=== PATIENT | female | born 1995 | race Caucasian/White ===

== ENCOUNTER 2025-05-01 06:20 | Inpatient (IN) | payer BC, SELFPAY ==
[2025-05-01] VITALS (214 sets, daily range): BP systolic 90–142; BP diastolic 28–93; PULSE 75–149; RESP 16; TEMP 36.7–37.6; O2SAT 94–100; BMI 32.9
--- OUTSIDE RECORDS SUMMARY | 2025-05-01 06:26 | XMS_ITS | Clinical Summary ---
Author Organization [facility] Address [address] [place] [id number] Care Team Providers Care Bag Shaker Name Role Phone Unavailable Primary Care Provider Unavailabl e Social History Tobacco Use Types Packs/Day Years Used Date Smoking Tobacco: Never Assessed Comments Unknown Sex and Gender Information Value Date Recorded Sex Assigned at Not on file Legal Sex Female 2:31 PM DRUG COORDINATOR Gender Identity Not on file Sexual Orientation Not on file Plan of Treatment Upcoming Encounters Date Type Department Care Team (Late st Contact Info) Description 10/28/2025 9:20 AM DRUG COORDINATOR Office Visit [facility] [address] [id number] Leroy [place], [address] [place] [id number] Health Maintenance Due Date Last Done Comments Cervical Cancer Screening Pa p Smear (Age 21 to 29) Every 3 Years 1997 Cervical Cancer Screening 1997 Annual Physical 01/17/2000 Hepatitis C 2015 DTaP, Tdap and Td Vaccines ( 1 - Tdap) 01/17/2016 Hepatitis B Vaccines (1 of 3 - 19+ 3-dose series) 01/17/2016 COVID-19 Vaccine (2023-2 5 season) 2024 HPV Vaccines Aged Out No longer eligi ble based on patient's age to complete this topic Meningococcal B Vaccine Aged Out No l onger eligible based on patient's age to complete this topic Meningococcal Vaccine Aged Out No corey faviola eligible based on patient's age to complete this topic Pneumococcal Vaccine: Pediat rics (0 to 5 Years) and At-Risk Patients (6 to 49 Years) Aged Out No longer eligible b ased on patient's age to complete this topic RSV Immunizations Under 20 Months Aged Out No longer eligible based on patient's age to complete this topic
--- NOTE | 2025-05-01 06:54 | PM.IMHP ---
H&P: HPI History of Present Illness Date/Time: 05/01/25 06:54 Chief Complaint: Induction of labor at term Narrative: This is a 30-year-old 1 para 0 whose last menstrual period was 07/26/2024, EDC is 05/02/2025, confirmed by first-trimester ultrasound presents at 39 and 6 7th weeks gestation for induction of labor. She is negative for group B strep in her has been uncomplicated. Her cervix is very favorable Review of Systems Review of Systems: All systems reviewed & are unremarkable except as noted in HPI and below PMFSH Family History Family History Grandparent Cerebrovascular accident Grandparent Pacemaker Atherosclerosis Hypertension Hyperlipidemia Grandparent Cancer Grandparent Heart disease Sibling Bicuspid aortic valve Social History Social History Substance use: never Spiritual care concerns: No Meds Home Medications and Allergies Home Medications ?Medication ?Instructions ?Recorded ?Confirmed ?Type loratadine 10 mg tablet (Claritin) 10 mg PO DAILY 04/05/25 05/01/25 History vit no.95-ferrous 1 tablet PO DAILY 04/05/25 05/01/25 History fumarate 28 mg-folic acid 800 mcg tablet () Allergies Allergy/AdvReac Type Severity Reaction Status Date / Time almond Allergy hives Verified 04/05/25 13:36 clindamycin Allergy hives Verified 04/05/25 13:36 ibuprofen Allergy hives Verified 04/05/25 13:36 Sulfa (Sulfonamide Allergy hives Verified 04/05/25 13:36 Antibiotics) Vital Signs Vital Signs - 24 hr 05/01/25 06:39 05/01/25 06:45 Pulse Rate 115 H 108 H Blood Pressure 125/87 126/88 Exam Const: General: cooperative, healthy appearing, comfortable and average body habitus Orientation/consciousness: oriented to person, oriented to place and oriented to time HENMT: Head: normal to inspection Resp: Effort & Inspection: normal respiratory effort Cardio: Rate: regular rate Rhythm: regular rhythm Heart sounds: S1 normal heart sound present and S2 normal heart sound present GI: Inspection: normal to inspection (Gravid soft uterus) Auscultation: normal bowel sounds : External Female Exam: normal external appearance Speculum Exam - Vagina: normal appearance of the vagina Speculum Exam - Cervix: normal appearance of the cervix (Cervix 3/75/1. AROM clear. FHT is reassuring) Assessment and Plan Assessment and plan (1) Term : Code(s): Z34.90 - Encounter for supervision of normal , unspecified, unspecified trimester Status: Acute Plan Medical induction of labor. Spontaneous vaginal delivery expected. She is an epidural candidate
--- NOTE | 2025-05-01 06:56 | LDADM ---
This patient, Keysha Franco, was admitted to Labor/Delivery/Recovery 108 on 05/01/25 at 06:20. Plans for labor, pain management and were discussed with patient. Patient/family oriented to hospital policies and general routines including ID bracelet, bed and alarms, visiting hours, pain management, procedures, bathroom and other care routines, personal items, smoking policy, room service/diet and guest tray routines, security routines, and visiting hours. Patient/Family are encouraged to report perceived risks to care and to ask questions if they do not understand what they are told or what they should do. See OBIX for further documentation.
--- NOTE | 2025-05-01 06:58 | P.PNAN_ITS ---
Anes - Eval Pre Procedure Procedure: labor epidural Date/Time: 05/01/25 06:58 Surgeon: fracisco Preop Diagnosis: pain during labor Pre Op Diagnosis: IOL Patient Data Age: 30 Gender: F Height: Weight: Last Vital Signs Pulse 108 H 05/01/25 06:45 BP 126/88 05/01/25 06:45 Allergies Allergy/AdvReac Type Severity Reaction Status Date / Time almond Allergy hives Verified 04/05/25 13:36 clindamycin Allergy hives Verified 04/05/25 13:36 ibuprofen Allergy hives Verified 04/05/25 13:36 Sulfa (Sulfonamide Allergy hives Verified 04/05/25 13:36 Antibiotics) Home Medications ?Medication ?Instructions ?Recorded ?Confirmed ?Type loratadine 10 mg tablet (Claritin) 10 mg PO DAILY 04/05/25 05/01/25 History vit no.95-ferrous 1 tablet PO DAILY 04/05/25 05/01/25 History fumarate 28 mg-folic acid 800 mcg tablet () Patient hx anesthesia problems: none Family hx anesthesia problems: none Results Review: All pre-operative results and documents have been reviewed as part of the pre- operative evaluation. REPLACED BY [facility] Past Medical History Medical History (Updated 05/01/25 @ 07:00 by Christine Garcia CRNA) Migraines, neuralgic Family History Family History Grandparent Cerebrovascular accident Grandparent Pacemaker Atherosclerosis Hypertension Hyperlipidemia Grandparent Cancer Grandparent Heart disease Sibling Bicuspid aortic valve Social History Social History Substance use: never Spiritual care concerns: No Exam Day of Procedure 05/01/25 06:58
[2025-05-01 07:02] LABS: Hematocrit 40.8 % (37.0-47.0); Hemoglobin 13.6 g/dL (12.0-15.0); Immature Granulocyte Percent A 0.3 % (0-0.5); Lymphocytes Absolute Auto 1.82 K/mm3 (0.9-3.2); Mean Corpuscular HGB Conc 33.3 g/dl (32-36); Mean Corpuscular Hemoglobin 28.2 pg (26-34); Mean Corpuscular Volume 84.6 fl (80-100); Nucleated Red Blood Cells Absolute Auto 0.000 K/mm3 (0.0-0.012); Nucleated Red Blood Cells Perc 0.0 % (0.0-0.2); Platelet Count Result 219 k/mm3 (150-375); Red Blood Count 4.82 M/mm3 (4.2-5.4); White Blood Count 9.7 K/mm3 (4.5-10.0)
[2025-05-01] MEDS: LACTATED RINGERS 1,000 ML 125 ML IV CONT ×4 (07:21→15:03)
[2025-05-01] MEDS: OXYTOCIN 30 UNITS/NS 500 ML 30 UNITS/500 ML BAG 6 UNITS IV CONT (07:24)
[2025-05-01 08:44] LABS: Syphilis IgG/IgM Antibody Non-Reactive (Nonreactive)
[2025-05-01 08:48] LABS: Hepatitis B Surface Antigen Negative (Negative)
--- NOTE | 2025-05-01 11:58 | PM.OBPNLAB ---
Pain Control Date/time seen: 05/01/25 11:58 Pain control: tolerating well and epidural Pelvic Exam Dilation (cm): 3 Effacement (%): 75 station: -2 Amniotic membrane status: Leaking
--- NOTE | 2025-05-01 12:27 | PM.OBPNLAB ---
Pain Control Date/time seen: 05/01/25 12:27 Pain control: tolerating well and epidural Pelvic Exam Dilation (cm): 7 Effacement (%): 75 station: -2 Amniotic membrane status: Leaking
--- NOTE | 2025-05-01 16:22 | PM.OBPNLAB ---
Pain Control Date/time seen: 05/01/25 16:22 Pain control: tolerating well and epidural Comments: iupc placed Pelvic Exam Dilation (cm): 8 Effacement (%): 90 station: -1 Amniotic membrane status: Leaking
--- NOTE | 2025-05-01 20:55 | P.PCNOB_ITS ---
OB - Vaginal Delivery Note Procedure Delivery date: 05/01/25 Events: Elective Induction of Labor Induction method: AROM Delivery augmentation: Pitocin Delivery monitor: External FHT, External Uterine and Internal Uterine Route of delivery: Episiotomy description: None Laceration Description: None Specimen: No Quantitative Blood Loss (ml): 162 Anesthesia type: Epidural Disposition: Floor Complications: No immediate complications Narrative: Patient was admitted for induction of labor hurt when artificial rupture membranes she had an IUPC placed had epidural anesthesia placed when she was complete she pushed delivered head spontaneously in the JOLIE position. Anterior posterior shoulder delivered spontaneously. Cord clamped and cut the nuchal cord checked noted be loose x1 review normal occiput. Anterior posterior shoulder delivered spontaneously. Cord clamped x2 and cut passed off the table given Apgars of 8 [id number] 9 [id number]. Cord blood was drawn. Placenta delivered intact spontaneously. Twenty of Pitocin placed in the IV to help firm the uterus lateral sidewalls and vagina were clear with a small first-degree laceration laterally which was not bleeding and not sewn up QBL was 162. All sponge, needle, instrument counts were correct. There were no immediate complications [place] Baby Date of : 05/01/25 Time of : 20:46 Infant gender: Male presentation: vertex position: Right Occiput Anterior Placenta delivery description: Spontaneous Cord Vessel Description: 3 Vessels, Nuchal Cord, Loose and Reduced score one minute: 8 score five minutes: 9
--- NOTE | 2025-05-01 20:58 | P.DS_ITS ---
DS: Admitting Diagnosis Discharge Date 05/03/2025 Admitting Diagnosis Term DS: Discharge Diagnosis Discharge Diagnosis (1) Term : Code(s): Z34.90 - Encounter for supervision of normal , unspecified, unspecified trimester Status: Acute DS: Summary Hospital Course Reason for hospitalization: Patient was admitted for induction of labor Hospital Course: Patient was admitted for induction of labor on 05/01/2025 and underwent spontaneous vaginal delivery with epidural anesthesia. Her hospital course unremarkable. She remained afebrile. She was up, voiding without difficulty, eating regular diet, ambulating, generally without complaints. Time Spent with Patient Time attestation: Total time spent providing and/or coordinating discharge services: Exam Const: General: cooperative, healthy appearing, comfortable and average body habitus Orientation/consciousness: oriented to person, oriented to place and oriented to time HENMT: Head: normal to inspection Resp: Effort & Inspection: normal respiratory effort Cardio: Rate: regular rate Rhythm: regular rhythm Heart sounds: S1 normal heart sound present and S2 normal heart sound present GI: Inspection: normal to inspection (Gravid soft uterus) Auscultation: normal bowel sounds : External Female Exam: normal external appearance Speculum Exam - Vagina: normal appearance of the vagina Speculum Exam - Cervix: normal appearance of the cervix (Cervix 3/75/1. AROM clear. FHT is reassuring) DS: Data Data Completed and Pending Labs on day of discharge: Labs from last 24 hours 05/01/25 06:50 WBC 9.7 RBC 4.82 Hgb 13.6 Hct 40.8 MCV 84.6 MCH 28.2 MCHC 33.3 RDW 13.7 Plt Count 219 MPV 10.1 Immature Gran % (Auto) 0.3 Neut % (Auto) 74.1 H Lymph % (Auto) 18.8 [place] % (Auto) 6.2 Eos % (Auto) 0.4 Baso % (Auto) 0.2 Lymph # (Auto) 1.82 [place] # (Auto) 0.6 Eos # (Auto) 0.0 Baso # (Auto) 0.0 Abs Immat Gran (auto) 0.03 Absolute Neuts (auto) 7.2 H Absolute Nucleated RBC 0.000 Nucleated RBC % 0.0 Syphilis IgG/IgM Ab Non-reactive Hep Bs Antigen Negative Blood Type O Positive Antibody Screen Negative Discharge Plan Discharge Attending physician on discharge: Sathish Lau Discharging Clinician: Sathish Lua Patient Disposition: Home Activity: may shower, no straining and pelvic rest Diet: heart healthy Wound Care Instructions: follow printed instructions Patient Instructions: Antibiotic Form Patient Language: Hebrew Stand Alone Forms: General Discharge Information Follow-up/Referrals: Sathish Lau MD [Physician] - Discharge Medications: Continued loratadine [Claritin] 10 mg tablet 10 mg PO DAILY PNV cmb#95-ferrous fumarate-FA [] 28 mg iron- 800 mcg tablet 1 tablet PO DAILY Date of admission: 05/01/25 06:20 Primary Care Provider: Latosha Graham Admitting Provider: Sathish Lau Attending physician on admission: Sathish Lau Condition: Stable
[2025-05-01] MEDS: OXYTOCIN 30 UNITS/NS 500 ML 30 UNITS/500 ML BAG 125 UNITS IV CONT (21:17)
--- NOTE | 2025-05-01 23:00 | PC.NURSE ---
Epidural catheter removed blue tip intact
[2025-05-01] MEDS: ACETAMINOPHEN 325 MG TABLET 650 MG PO (23:54)
[2025-05-02 04:29] LABS: Hematocrit 39.4 % (37.0-47.0); Hemoglobin 12.7 g/dL (12.0-15.0)
--- NOTE | 2025-05-02 07:02 | P.PNOB_ITS ---
OB - PN: Subj Subjective Date/time seen: 05/02/25 07:02 Patient comments: no complaints, pain well controlled and tolerating diet [place] baby status: doing well OB - PN: Obj Data Labs 05/02/25 04:04 Labs: Laboratory Results - last 24 hr 05/01/25 05/02/25 06:50 04:04 WBC 9.7 RBC 4.82 Hgb 13.6 12.7 Hct 40.8 39.4 MCV 84.6 MCH 28.2 MCHC 33.3 RDW 13.7 Plt Count 219 MPV 10.1 Immature Gran % (Auto) 0.3 Neut % (Auto) 74.1 H Lymph % (Auto) 18.8 [place] % (Auto) 6.2 Eos % (Auto) 0.4 Baso % (Auto) 0.2 Lymph # (Auto) 1.82 [place] # (Auto) 0.6 Eos # (Auto) 0.0 Baso # (Auto) 0.0 Abs Immat Gran (auto) 0.03 Absolute Neuts (auto) 7.2 H Absolute Nucleated RBC 0.000 Nucleated RBC % 0.0 Syphilis IgG/IgM Ab Non-reactive Hep Bs Antigen Negative Blood Type O Positive Antibody Screen Negative OB - PN A/P Assessment and Plan (1) Term : Code(s): Z34.90 - Encounter for supervision of normal , unspecified, unspecified trimester Status: Acute Plan routine care Time Spent With Patient Time: Total time spent is greater than 50% in coordination of care (as documented) at patient's floor/unit and/or counseling patient: Exam 2 Const: General: cooperative, healthy appearing, comfortable and average body habitus Orientation/consciousness: oriented to person, oriented to place and oriented to time HENMT: Head: normal to inspection Resp: Effort & Inspection: normal respiratory effort Cardio: Rate: regular rate Rhythm: regular rhythm Heart sounds: S1 normal heart sound present and S2 normal heart sound present GI: Inspection: normal to inspection (Gravid soft uterus) Auscultation: n ormal bowel sounds : External Female Exam: normal external appearance Speculum Exam - Vagina: normal appearance of the vagina Speculum Exam - Cervix: normal appearance of the cervix (Cervix 3/75/1. AROM clear. FHT is reassuring)
[2025-05-02 07:25] VITALS: BP 121/81; PULSE 76; RESP 16; TEMP 36.8; O2SAT 99
[2025-05-02] MEDS: ACETAMINOPHEN 325 MG TABLET 650 MG PO ×2 (07:36→16:25)
[2025-05-02] MEDS: DOCUSATE SODIUM 100 MG CAPSULE PO ×2 (07:36→16:25)
[2025-05-02] MEDS: LANOLIN (LANSINOH) 7.5 GM CREAM 1 APPLIC TOPICAL (07:36)
[2025-05-02] MEDS: WITCH HAZEL 40 PADS 1 PAD TOPICAL (07:36)
[2025-05-02] MEDS: BENZOCAINE 20% AER SPR (*SP) 56 GM CAN 1 SPRAY TOPICAL (07:36)
--- NOTE | 2025-05-02 07:57 | WPDANLDPN2 ---
Anes-Prog Note L&D Date/Time: 05/02/25 07:57 Comfortable throughout: labor and delivery Neuraxial method: epidural Epidural/Spinal procedure site: clean & non-tender Neuro status: Neuro function grossly intact. Cardiovascular status: normal Respiratory status: normal Airway patency: baseline Mental status: baseline Post-Op hydration status: normal Vital Signs: Last Vital Signs Temp 37.3 C 05/01/25 23:01 Pulse 115 H 05/01/25 23:01 Resp 16 05/01/25 23:00 BP 126/66 05/01/25 23:01 Pulse Ox 100 05/01/25 23:00 O2 Del Method Room Air 05/01/25 06:50 Pain score (VAS): 0 I/O: Intake & Output 05/01/25 05/01/25 05/02/25 15:59 23:59 07:59 Intake Total 2800 Balance 2800 Post-procedural complaints: none Patient feedback: Patient satisfied with anesthetic care.
--- NOTE | 2025-05-02 10:45 | PC.NURSE ---
Consulted with patient to assess needs related to . Discussed with mother her successes, concerns and any questions she has. Mother was concerned with nipple soreness and baby not latching deep enough, her night RN had pulled her a nipple shield to use if needed. We reviewed working with the , supporting breast, protecting her nipples with an optimal deep latch, good positioning, and good hand washing. Encouraged understanding the benefits of skin to skin, responding to feeding cues, frequencies of feeding 8-12 times in 24 hours (approximately 2-3 hours), duration of feedings, milk production, intake/output feeding sheet and signs of adequate intake encouraging swallowing at the breast. Reviewed positioning and alignment, supporting breast, off-centered (asymmetrical latch) and leading with the chin with big, open, wide gape. latched optimally to the [right] breast in [football] position. Education given to the mother of how to visualize the suckling (with good rocking jaw motion) swallows (dropping of the lower jaw) and how to listen for drinking at the breast (the ka sound). The was [able] to maintain latch without discomfort to mother. Per mother the latch felt better and she was able to relax and keep baby close while . CLC, RN did pull her some of the hydrogel pads to use for her nipple soreness. Nipple care reviewed with optimal latch, good positioning and using clean hands when touching her breast. Resources used to facilitate learning were used from the [visual handouts/ tool/mom and baby guide]. Mother voiced understanding of the education shared, to call for assistance if the infant does not latch or if there is discomfort with . Reported to the Primary RN.
[2025-05-02 12:51] VITALS: BP 113/75; PULSE 99; RESP 16; TEMP 36.6; O2SAT 98
[2025-05-02 15:49] VITALS: BP 110/79; PULSE 88; RESP 18; TEMP 37; O2SAT 97
[2025-05-02] MEDS: SIMETHICONE 80 MG TAB.CHEW PO (16:25)
[2025-05-02 19:44] VITALS: BP 115/81; PULSE 93; RESP 14; TEMP 36.6; O2SAT 100
--- NOTE | 2025-05-03 06:45 | P.PNOB_ITS ---
OB - PN: Subj Subjective Date/time seen: 05/03/25 06:45 Patient comments: no complaints, pain well controlled and tolerating diet [place] baby status: doing well OB - PN: Obj Data Labs 05/02/25 04:04 OB - PN A/P Assessment and Plan (1) Term : Code(s): Z34.90 - Encounter for supervision of normal , unspecified, unspecified trimester Status: Acute Plan Comments: home Time Spent With Patient Time: Total time spent is greater than 50% in coordination of care (as documented) at patient's floor/unit and/or counseling patient: Review of Systems 2 Review of Systems: All systems reviewed & are unremarkable except as noted in HPI and below Exam 2 Const: General: cooperative, healthy appearing, comfortable and average body habitus Orientation/consciousness: oriented to person, oriented to place and oriented to time HENMT: Head: normal to inspection Resp: Effort & Inspection: normal respiratory effort Cardio: Rate: regular rate Rhythm: regular rhythm Heart sounds: S1 normal heart sound present and S2 normal heart sound present GI: Inspection: normal to inspection (Gravid soft uterus) Auscultation: n ormal bowel sounds : External Female Exam: normal external appearance Speculum Exam - Vagina: normal appearance of the vagina Speculum Exam - Cervix: normal appearance of the cervix (Cervix 3/75/1. AROM clear. FHT is reassuring)
[2025-05-03 07:35] VITALS: BP 111/77; PULSE 74; RESP 18; TEMP 36.6; O2SAT 100
[2025-05-03] MEDS: DOCUSATE SODIUM 100 MG CAPSULE PO (11:26)
[2025-05-04 11:36] VITALS: BP 109/67; PULSE 78; RESP 18; TEMP 36.2; O2SAT 100
== END 2025-05-03 17:10 | disposition home or self-care (01) | DRG 807 ==
LOC: ANHLDR 20:59 → ANHOB2 23:13
PROVIDERS: Admitting Provider Obstetrics & Gynecology; PCP Nurse Practitioner Family; Visit Provider Obstetrics & Gynecology
DX: O69.81X0 Labor and delivery complicated by cord around neck, without compression, not applicable or unspecified (principal); Z37.0 Single live birth; Z3A.39 39 weeks gestation of pregnancy
CPT/HCPCS: 36415; 85014; 85018; 85025; 86593; 86850; 86900; 86901; 87340; A9270; J2590; J2795; J7120

== ENCOUNTER 2025-06-03 11:01 | Emergency (ER) | payer BC, SELFPAY ==
[2025-06-03 11:09] VITALS: BP 139/92; PULSE 74; RESP 16; TEMP 36.6; O2SAT 98
--- NOTE | 2025-06-03 11:10 | ED.SKABFB ---
HPI - Skin/Abscess/Foreign Bdy General Chief complaint: Skin/Abscess/Foreign Body Stated complaint: Rash Time Seen by Provider: 06/03/25 11:10 Source: patient, RN notes reviewed and old records reviewed Mode of arrival: ambulatory Limitations: no limitations History of Present Illness HPI narrative: 30-year-old female presents to the [facility] with complaints of 2 different rashes 1 under the breast, bilateral thighs.. Had contacted OBGYN was prescribed a steroid cream, oral steroids and of fungal cream. Reports the rash under has improved with the use of nystatin. Continues to use it. Has developed a red patchy hives to the thighs. Reports these are very itchy. Symptoms x1 week Was prescribe steroids 5 days ago. Patient delivered a baby about 1 month ago. Patient does pump Related Data Home Medications ?Medication ?Instructions ?Recorded ?Confirmed ?Last Taken ?Type vit no.95-ferrous 1 tablet PO DAILY 04/05/25 05/01/25 05/01/25 05:00 History fumarate 28 mg-folic acid 800 mcg tablet () nystatin 100,000 unit/gram topical topical 06/03/25 Unknown History cream Allergies Allergy/AdvReac Type Severity Reaction Status Date / Time NSAIDS (Non-Steroidal Allergy Mild hives Verified 06/03/25 11:20 Anti-Inflamma almond Allergy hives Verified 06/03/25 11:20 clindamycin Allergy hives Verified 06/03/25 11:20 ibuprofen Allergy hives Verified 06/03/25 11:20 Sulfa (Sulfonamide Allergy hives Verified 06/03/25 11:20 Antibiotics) Review of Systems Review of Systems: All systems reviewed & are unremarkable except as noted in HPI and below Constitutional: Constitutional: Reports no additional constitutional complaints ENT: Reports system reviewed and no additional complaints, except as documented Cardiovascular: Cardiovascular: Reports no additional cardiovascular complaints, Denies chest pain and Denies dyspnea Respiratory: Respiratory: Reports no additional respiratory complaints, Denies chest congestion, Denies cough and Denies dyspnea Musculoskeletal: Musculoskeletal: Reports no additional musculoskeletal complaints Integumentary/Breasts: Skin/Breast: Reports as per HPI [facility] Past Medical History Medical History Migraines, neuralgic Family History Family History Grandparent Cerebrovascular accident Grandparent Pacemaker Atherosclerosis Hypertension Hyperlipidemia Grandparent Cancer Grandparent Heart disease Sibling Bicuspid aortic valve Social History Social History Smoking status: Never smoker Second hand tobacco smoke exposure: No Substance use: never Do You Feel Safe in your Home?: Yes Lack of Transportation: No Lack of Food: Never True Current Housing: I Have Housing Concerned About Future Housing: No Difficulty Paying Gas/Electric Bills: No Difficulty Paying for Meds: No Currently Unemployed: No Education: Bachelor's Degree Difficulty w/ Childcare or Family Care: No Spiritual care concerns: No Comments At the time of my signature, I reviewed and agree with the nursing past medical, surgical, social, and family history. There is no relevant family history pertinent to the patient complaint. Exam Const: General: cooperative, healthy appearing, comfortable, no acute distress, well developed, alert and well nourished Nutritional Appearance: well nourished Orientation/consciousness: patient oriented x3 Limitations: no limitations HENMT: Head: normal to inspection Ears: hearing grossly normal bilaterally Mouth: Yes Normal oral and palatal mucosa present, Yes lip normal, Yes tongue normal and Yes moist mucous membranes Eyes: General: appearance normal, both eyes and all related structures Alignment and Position: alignment normal Neck: Neck: normal visual inspection, full ROM, no lymphadenopathy and no meningeal signs Chest: Chest palpation & inspection: normal inspection of the chest Resp: Effort & Inspection: normal respiratory effort and able to speak in complete sentences Auscultation: clear to auscultation bilaterally, no crackles, no rales, no rhonchi and no wheezes Cardio: Rate: regular rate Skin: General skin exam: normal color and no rashes or lesions noted Other: Bilateral below breast pink areas, improving with nystatin, no cellulitic changes Bilateral thighs, hives, 1 cm patchy areas, described as itchy. Neuro: General: patient oriented x3, gait normal, moves all extremities and no meningeal signs Cognition (Neuro): normal cognition Speech: normal speech Gait exam (Neuro): Normal gait present Extrem: General: normal to inspection, full ROM, capillary refill normal and normal gait Psych: Appearance: grossly normal and well kempt Mental Status: mental status grossly normal Speech and movement: Normal speech and movement present and Clear speech present Affect: normal affect Attitude: cooperative Course Course Level of Care: Express Care Visit Vital Signs Vital signs: Vital Signs Temperature 97.9 F 06/03/25 11:09 Pulse Rate 74 06/03/25 11:09 Respiratory Rate 16 06/03/25 11:09 Blood Pressure 139/92 H 06/03/25 11:09 Pulse Oximetry 98 06/03/25 11:09 Oxygen Delivery Room Air 06/03/25 11:09 Temperature 97.9 F 06/03/25 11:09 Pulse Rate 74 06/03/25 11:09 Respiratory Rate 16 06/03/25 11:09 Blood Pressure 139/92 H 06/03/25 11:09 Pulse Oximetry 98 06/03/25 11:09 Oxygen Delivery Room Air 06/03/25 11:09 Reviewed MDM - Skin/Abscess/Foreign Bdy MDM Narrative Medical decision making narrative: Patient sitting in exam room. Patient is nontoxic, vitals are stable. Patient presents with 1 week history of rashes. Has done a antifungal under the breast, improvement noted by patient. Still having a rash to her thighs, appears hives in appearance. Had tried oral steroids, no other [id number] products Discussed the possibility that this could be related to hormones. Discussed trying Claritin, Pepcid and will prescribe triamcinolone. Patient appropriate for outpatient treatment with close follow-up with [facility] Discharge instructions reviewed with patient, as well as provided in writing per nursing staff. The instructions also include specific and strict return/GO TO THE ER as well as f/u information. All questions have been answered, and the patient deny any further questions with discharge and discharge plan. Some parts of this dictation were generated by voice recognition software and may contain typographical and/or grammatical inaccuracies. Differential Diagnosis Differential diagnosis: Likely abscess of skin or subcutaneous tissue, dermatophytosis, urticaria, cellulitis, eczema, insect bites, impetigo and contact dermatitis Critical Care Time Critical Care Time Critical Care Time: No Discharge Plan Discharge Clinical Impression: Rash Patient Disposition: Home Condition: Stable Instructions: Antibiotic Form, Acute Rash (ED) Additional Instructions: The most important part of your care is follow up with Primary care provider. Take Claritin daily Take Pepcid 20mg daily for 14 days Apply the steroid cream sparingly twice a day Avoid hot showers, Take cool showers. Hot showers will make rashes worse Apply cool compresses every 2-3 hours for 15 minutes Go to the ER for new or worsening symptoms such as shortness of breath. Patient Language: Belarusian Prescriptions: New triamcinolone acetonide 0.1 % cream 1 applic topical BID Qty: 30 0RF No Action nystatin 100,000 unit/gram cream TOPICAL PNV no.95-ferrous fumarate-FA [] 28 mg iron- 800 mcg tablet 1 tablet PO DAILY Follow-up/Referrals: Sathish Lau MD [Physician] - 1 Week (express care follow up ) Latosha Graham NP [Primary Care Provider] - Time of Disposition: 11:24
== END 2025-06-03 11:31 | disposition home or self-care (01) ==
PROVIDERS: Emergency Provider Nurse Practitioner; PCP Nurse Practitioner Family
DX: R21 Rash and other nonspecific skin eruption (principal)
CPT/HCPCS: 99213; G0463